=== PATIENT | female | born 1940 | race Caucasian/White ===

== ENCOUNTER 2025-08-11 19:30 | Inpatient (IN) | payer MEDICARE ==
[~2025-08-11] VITALS: Ht 154.9 cm; Wt 54.2 kg
[~2025-08-11 19:30] MED LIST: HYDR200T73 PO; LEVO88TA28 PO; METH1TAB69 PO; METH2.5T PO; VALS160T2 PO
--- NOTE | 2025-08-11 19:41 | ELECTROCARDIOGRAPH REPORT ---
[facility] Test Date: 2025-08-11 Test Time: 19:38:24 Pat Name: SALLY SELLERS Department: EMERGENCY ROOM Room: [place] [address] Gender: F Ancillary Specialist: PM : 1940 Requested By: RENEE ESCALONA Order Number: [id number] Reading MD: Dr. MERON Mike Measurements Intervals [place] Rate: 105 P: 71 [place]: 157 QRS: 48 QRSD: 86 T: 56 QT: 316 QTc: 418 Interpretive Statements Sinus tachycardia Probable left atrial enlargement Electronically Signed On 08-12-2025 17:34:[address] MERON Mike Please click the below link to view image of tracing.
[2025-08-11 20:02] LABS: MEAN PLATELET VOLUME 6.4 FL (7.4-10.4); RED CELL DISTRIBUTION WIDTH 15.2 % (11.5-14.5)
[2025-08-11 20:23] LABS: CREATININE 0.65 MG/DL (0.40-0.90); PRO BRAIN NATRIURETIC PEPTIDE 1261 PG/ML (0-450); TOTAL CARBON DIOXIDE 24.9 MMOL/L (24-32); eCRCL 47 ML/MIN; eGFR 86 ML/MIN
--- NOTE | 2025-08-11 20:32 | RADIOLOGY REPORT ---
EXAM: DI CHEST,SINGLE VIEW TECHNIQUE: Single frontal chest radiograph CLINICAL HISTORY: CP COMPARISON: None FINDINGS/IMPRESSION: Probable small right pleural effusion. Patchy opacities throughout the right lung, most pronounced within the right lower lung. Unremarkable cardiomediastinal silhouette. No pneumothorax. Age-indeterminate fracture of the right humeral head.
[2025-08-11] MEDS ORDERED: levoFLOXACIN-Levaquin 500mg/D5 100 ML IV ONE (20:45)
--- NOTE | 2025-08-11 20:50 | Physician Documentation ---
History of Present Illness ~ Chief Complaint: Weakness Stated Complaint: WEAKNESS Time Seen by MD: 20:28 OK to notify your PCP?: Yes Primary Medical Doctor: [facility] Mode of Arrival: EMS HPI Patient presents to the emergency room for evaluation of generalized weakness. Symptoms has been gradual over the past week and she has developed fever as well. Patient has weakness profound enough to where she is not able to walk. She also endorses some swelling in her lower extremities Medication Reconciliation Allergies: Coded Allergies: Tetracyclines (Verified Allergy, Intermediate, diarrhea, 08/11/25) amoxicillin trihydrate (Verified Allergy, Intermediate, diarrhea, 08/11/25) potassium clavulanate (Verified Allergy, Intermediate, diarrhea, 08/11/25) cefuroxime axetil (Verified Allergy, Unknown, 08/11/25) codeine (Verified Adverse Reaction, Mild, gi, 08/11/25) Scheduled Amitriptyline Hcl* (Elavil*), 1 TAB PO HS, (Reported) Folic Acid* (Folic Acid*), 1 TAB PO DAILY, (Reported) Hydroxychloroquine Sulfate* (Plaquenil*), 200 MG PO DAILY, (Reported) Levothyroxine Sodium* (Levoxyl*), 88 MCG PO DAILY, (Reported) Melatonin (Melatonin), 1 TAB PO HS, (Reported) Methenamine Hippurate (Methenamine Hippurate), 1 GM PO BID, (Reported) Methotrexate Sodium (Methotrexate), 10 MG PO Q7D, (Reported) Olmesartan Medoxomil* (Benicar*), 1 TAB PO DAILY, (Reported) Valsartan* (Diovan*), 320 MG PO DAILY, (Reported) Past Medical History Past Medical History: Hypertension, Cholelithiasis, Diverticulitis, UTI, Arthritis Past Surgical History: hysterectomy, other Alcohol Use: Other Lives with: Alone Lives In: Home Review of Systems ROS All review of systems negative except as per HPI Physical Exam Vital Signs: Temperature: 100.0, Source: Oral, Heart Rate: 110, Respiratory Rate: 18, BP: 174/81, Pulse Oximetry: 92, Weight: 54.200 Oxygen Flow Rate: 0 Physical Exam General: Patient is awake, alert, oriented x4 in no acute distress Head: Normocephalic and atraumatic. Eyes: Conjunctival normal. EOMI. PERRL. ENT: Mucous membranes moist. Neck: Supple, trachea is midline. Chest: Clear to auscultation bilaterally without rales, rhonchi, or wheezes. There is no accessory muscle use or retractions. Cardiac: Tachycardic and regular without murmurs, gallops, or rubs. Abd: Soft, nondistended, nontender, with normoactive bowel sounds. No guarding, rebound, or rigidity. Progress Results/Orders Results/Orders Orders - HECTOR PRICE MD Chest,Single View (08/11/25 20:10) Monitor (08/11/25 19:32) Saline Lock (08/11/25 19:32) Oxygen (08/11/25 19:32) Page Hospitalist (08/11/25 20:48) Fill Out Med Reconciliation (08/11/25 20:48) Completed Orders - HECTOR PRICE MD Chest,Single View (08/11/25 20:10) Cbc/Diff (08/11/25 19:32) BMP (08/11/25 19:32) PBNP (08/11/25 19:32) Electrocardiogram (08/11/25 19:32) Hs Troponin I W Calculations (08/11/25 19:32) Hs Troponin I W Calculations (08/11/25 21:32) Hs Troponin I W Calculations (08/11/25 22:32) Azithromycin/Ns 500mg/250ml (Zithromax/N (08/11/25 20:30) Sodium Chloride Tablet (Sodium Chloride (08/11/25 20:50) Hgb A1c (08/11/25 19:45) Medications Received in ER Medications (Trade) Dose Ordered Sig/Yaa Route PRN Reason Start Time Stop Time Status Last Admin Dose Admin Azithromycin 250 ml @ 250 mls/hr ONCE ONCE IV 08/11/25 20:30 08/11/25 21:29 DC 08/11/25 21:52 250 MLS/HR (sodium chloride tablet) 1 gm ONCE ONCE PO 08/11/25 20:50 08/11/25 20:51 DC 08/11/25 21:51 1 GM Vital Signs 08/11/25 08/11/25 19:34 20:31 Temp 100.0 Pulse 110 Resp 18 B/P (MAP) 174/81 Pulse Ox 92 O2 Flow Rate 0 Laboratory Tests Test 08/11/25 19:45 White Blood Count 13.4 H Red Blood Count 3.93 L Hemoglobin 13.2 Hematocrit 36.8 Mean Corpuscular Volume 93.6 Mean Corpuscular Hemoglobin 33.5 H Mean Corpuscular Hemoglobin Concent 35.8 Red Cell Distribution Width 15.2 H Platelet Count 205 Mean Platelet Volume 6.4 L Neutrophils (%) (Auto) 88.7 H Lymphocytes (%) (Auto) 4.3 L Monocytes (%) (Auto) 6.8 Eosinophils (%) (Auto) 0 Basophils (%) (Auto) 0.2 Neutrophils # (Auto) 11.9 H Lymphocytes # (Auto) 0.6 L Monocytes # (Auto) 0.9 Eosinophils # (Auto) 0.0 Basophils # (Auto) 0.0 CBC Comment Sodium Level 125 L Potassium Level 3.9 Chloride Level 92 L Carbon Dioxide Level 24.9 Anion Gap 8 Blood Urea Nitrogen 11 Creatinine 0.65 Estimated GFR/1.73 m2 86 BUN/Creatinine Ratio 16.9 Glucose Level 113 H Hemoglobin A1c 5.4 Calcium Level 8.1 L Troponin I High Sensitivity 247 *H Pro-B-Type Natriuretic Peptide 1261 H Albumin 2.9 L Chemistry Comments EKG/XRAY/CT/US/VASC/MRI EKG : Additional Comment EKG interpreted by myself shows time of 1940, rate 105, sinus tachycardia, normal axis, no ST changes Chest X-Ray : Additional Comments Exam: CHEST,SINGLE VIEW EXAM: DI CHEST,SINGLE VIEW TECHNIQUE: Single frontal chest radiograph CLINICAL HISTORY: CP COMPARISON: None FINDINGS/IMPRESSION: Probable small right pleural effusion. Patchy opacities throughout the right lung, most pronounced within the right lower lung. Unremarkable cardiomediastinal silhouette. No pneumothorax. Age-indeterminate fracture of the right humeral head. Electronically Signed by:LILO STONE MD Date & Time: 08/11/252028 Medical Decision Making Additional information obtaine: old records Findings Patient presents to the emergency room for evaluation of generalized weakness. Differentials include but are not limited to urinary tract infection, electrolyte disturbances, dehydration, acute kidney injury, pneumonia therefore emergent labs and imaging indicated. Chest x-ray shows likely pneumonia which was is supported by patient's fever. IV antibiotics initiated. Possible element of volume overload/heart failure. On chest x-ray fracture seen in patient's right humerus however this is chronic in nature and patient is able to freely move for right arm. Elevation of troponins which may be related to heart failure infectious process. No ST elevation seen on EKG Differential Dx:Considerations: Include: anemia, CVA, dehydration, dysrhythmia, electrolyte imbalance, encephalopathy, Guillain-Canisteo, hypoglycemia, hypot ension, hypovolemia, labyrinthitis, Meniere's disease, myasathenia gravis, myocardial infarction, pulmonary embolus, renal failure, respiratory failure, TIA, VBI, vertigo central, vertigo peripheral, vestibular neuronitis, other Departure Admitted to Inpatient Unit: yes, to hospitalist Impression: Primary Impression: Pneumonia Additional Impression: Elevated troponin Condition: Guarded Referrals: NO PRIMARY CARE PROVIDER (PCP) Signature Scribe Signature: No scribe Attestation: The note accurately reflects work and decisions made by me.Hector Price MD 08/11/25 21:26 HECTOR PRICE MD Aug 11, 2025 20:50
[2025-08-11] MEDS: acetaminophen 1,000mg/100ml IV 100 ML IV ONE (21:49)
[2025-08-11] MEDS: azithromycin/NS 500mg/250ml 250 ML IV ONE (21:52)
[2025-08-11] MEDS ORDERED: HYDROcodone/acetaminophen 10/325mg tab PO PRN (22:00)
[2025-08-11] MEDS: PERFLUTREN PROTEIN-A MICROSPHR (Optison) 0.22 MG/ML 3ML VIAL IV ONE (22:00)
[2025-08-11] MEDS ORDERED: potassium Cl 20 mEq SR tablet PO PRN (22:00)
[2025-08-11] MEDS ORDERED: magnesium sulf-water 4G/100mL 100 ML IV PRN (22:00)
[2025-08-11] MEDS ORDERED: HYDROcodone/acetaminophen 5mg/325mg tablet PO PRN (22:00)
[2025-08-11] MEDS ORDERED: mag hydrox/Alum hydrox/simeth 30ml oral suspension PO PRN (22:00)
[2025-08-11] MEDS ORDERED: magnesium Cl slow-release 64mg tablet PO PRN (22:00)
[2025-08-11] MEDS ORDERED: potassium Cl 40MEQ/1/2NS 520ml 520 ML IV PRN (22:00)
[2025-08-11] MEDS ORDERED: ondansetron/PF 4mg/2ml inj IV PRN (22:00)
[2025-08-11] MEDS ORDERED: magnesium sulf-water 2g/50mL 50 ML IV PRN (22:00)
[2025-08-11] MEDS ORDERED: albuterol 2.5 MG/3 ML nebule NEB PRN (22:15)
[2025-08-11] MEDS ORDERED: ipratropium/albuterol 3ml nebule NEB PRN (22:15)
[2025-08-11] MEDS ORDERED: FOLI0.4T6 PO (22:20)
[2025-08-11] MEDS ORDERED: MELA10TA37 PO (22:20)
[2025-08-11] MEDS ORDERED: OLME5TAB32 PO (22:20)
[2025-08-11] MEDS ORDERED: AMIT50TA15 PO (22:20)
[2025-08-11] MEDS: diltiazem 5mg/ml 5ml inj. IV ONE (22:59)
[2025-08-11 23:14] LABS: INFLUENZA TYPE A ANTIGEN RAPID NEGATIVE (Negative); INFLUENZA TYPE B ANTIGEN RAPID NEGATIVE (Negative)
--- NOTE | 2025-08-11 23:17 | HISTORY AND PHYSICAL-Residence ---
History & Physical Providers to CC Resident Creating Document: KRISTINA ZUNIGA RES ~ History of Present Illness Primary Medical Doctor: ricardo [facility] Reason for Admit\Complaint: weakness, New onset a fib rvr, PNA History of Present Illness 84-year-old female with history of hypothyroid on levothyroxine, migraine, rheumatoid arthritis, skin cancer SCC presents to the ED with chief complaints of bilateral lower extremity weakness and fatigue. States yesterday she was not able to get up and stand due to weakness. Associated fever, cold, cough, loss of appetite. No expectoration. States that she feels dehydrated and has not been able to drink enough water for the last couple of days. Normally she is independent and able to walk around by herself, but for the last two three days she has been needing to use a walker. Borrowed the walker from her neighbor. Denies significant chest pains, diaphoresis, expectoration, palpitations, or weight loss/weight gain. She has a chronic history of being lightheaded and left hand numbness. She has a history of migraine and undergoes Botox, last Botox was two weeks ago. Drinks a glass of wine every day. Does not smoke no recreational drugs. PCP [facility]. Has a history of rheumatoid arthritis and is seeing a skimmer here in [place] on methotrexate. Also sees Dr. Cobb for history of skin SCC. Was supposed to see Dr. Dee tomorrow for cardiac evaluation. Allergies: Coded Allergies: Tetracyclines (Verified Allergy, Intermediate, diarrhea, 08/11/25) amoxicillin trihydrate (Verified Allergy, Intermediate, diarrhea, 08/11/25) potassium clavulanate (Verified Allergy, Intermediate, diarrhea, 08/11/25) cefuroxime axetil (Verified Allergy, Unknown, 08/11/25) codeine (Verified Adverse Reaction, Mild, gi, 08/11/25) Home Medications Home Medications Active Reported Melatonin 10 Mg Tablet 1 Tab PO HS 30 Days Elavil* (Amitriptyline HCl) 50 Mg Tablet 1 Tab PO HS 30 Days Folic Acid* (Folic Acid) 0.4 Mg Tablet 1 Tab PO DAILY 30 Days Benicar* (Olmesartan) 5 Mg Tablet 1 Tab PO DAILY 30 Days Plaquenil* (Hydroxychloroquine Sulfate) 200 Mg Tablet 200 Mg PO DAILY Methotrexate (Methotrexate Sodium) 2.5 Mg Tablet 10 Mg PO Q7D Methenamine Hippurate 1 Gm Tablet 1 Gm PO BID Diovan* (Valsartan) 160 Mg Tablet 320 Mg PO DAILY Levoxyl* (Levothyroxine Sodium) 88 Mcg Tablet 88 Mcg PO DAILY Past Medical History Past Medical History Hypothyroid on levothyroxine Migraine Cystitis on amitriptyline Past Surgical History Surgical History Comment Partial thyroidectomy Skin cancer resection Hysterectomy 1989 Carpal tunnel surgery Past Social History Alcohol Use: Other Lives with: Alone Lives In: Home ROS ROS Reviewed in full. All negative except for pertinent positive HPI. Exam Vitals: Vital Signs Date Time Temp Pulse Resp B/P (MAP) Pulse Ox O2 Delivery O2 Flow Rate FiO2 08/11/25 22:59 165 157/81 08/11/25 22:05 99.7 16 96 0 General: General: Awake and Alert, no acute distress. HEENT: Conjunctiva pink, Sclera clear, Mucus Membranes dry. Neck: Supple without masses and tenderness. Resp: Unlabored. Equal breath sounds bilaterally. Heart: Irregularly irregular, variable S1 no murmurs heard. Abdomen: Soft and non tender no organomegaly. Normal bowel sounds x4 quadrant normoactive. No guarding or rigidity. Extremities: Arthritic changes noted in bilateral hands. Normal ROM, no swelling, nontender. No cyanosis,clubbing or edema. Right upper extremity chronic restriction in range of motion from right humeral head fracture (15 years ago). 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 Skin: Warm and Dry. Diagnostic Data Last Recorded Lab Results: 08/11/25194408/11/251944 Advance Care Planning Advanced Care plannin - 30 Minutes (I spent total of 15-30 minutes reviewing various resuscitative measures with the patient. Patient decided to be DNR.) Additional Plan 84-year-old female with history of hypothyroid on levothyroxine, migraine, rheumatoid arthritis, skin cancer SCC presents to the ED with chief complaints of bilateral lower extremity weakness and fatigue. New onset AFib RVR Camilo Vasc 3 Initially she was in sinus tach HR 111's, in the ED she went into AFib RVR with heart rate in 160s Was given Cardizem 10 x 1 by ED physician Started Cardizem drip at 5 mg/hour Continuous telemetry monitoring Follow up with the echo, based on EF DC Cardizem drip and transitioned to beta blockers/CCB Follow up with A1c, lipid panel, TSH Started Eliquis five p.o. b.i.d. Community-acquired pneumonia POA Generalized weakness Hypovolemic Hyponatremia Elevated WBCs 13.4 with neutrophilic shift Procalcitonin 3.9, follow up with lactic acid Sodium is 125, follow up with spot studies CXR: Small right-sided pleural effusion right lower lung opacity. Appears to be dehydrated, continue IV fluid resuscitation NS at 100 mL/hour IV antibiotics Levaquin 750 Q 48 H, breathing treatments p.r.n. Started methylprednisolone 40 IV daily Follow up with blood cultures, sputum cultures, CT chest, lactic acid, UA, U tox, flu and COVID testing Elevated BNP Elevated troponins, type 2 [place] She does have elevation in BNP 1 261, but she is not fluid overloaded Follow up with echo Elevated tropes (flat) could have been secondary to AFib RVR EKG initial: Sinus tach, repeat EKG couple hours later: AFib RVR heart rate in 160 Continue anticoagulation with Eliquis five b.i.d. Chronic fracture of the right humeral head (15 years ago), chronic restriction in range of motion of the right upper extremity. History of migraine, undergoing Botox treatment Hypothyroid on levothyroxine (partial thyroidectomy) Rheumatoid arthritis on methotrexate Awaiting med rec Code Status: DNR DVT prophylaxis: Eliquis Analgesia/sedation: None Line/tube: PIV GI prophylaxis: Protonix Nutrition: Heart healthy Prognosis: Guarded Disposition: Continue medical management. Kristina Zuniga MD. IM Resident PGY-3 Patient case discussed with resident, agree with the assessment and plan as above. Bobbi Diaz MD Critical Care Date of Service: Aug 11, 2025 Billing Provider: BOBBI DIAZ MD, ELIZABETH, RES Aug 11, 2025 23:17 BOBBI DIZA MD Aug 12, 2025 14:29
[2025-08-11 23:28] LABS: LEUKOCYTE ESTERASE ,URINE NEGATIVE (Neg); NITRITES, URINE POSITIVE (Neg); OCCULT BLOOD,URINE LARGE (Neg)
[2025-08-11 23:30] LABS: UA COLLECTION TYPE CLN CATCH MIDSTREAM
[2025-08-11] MEDS: levoFLOXACIN-Levaquin 750MG/D5 150 ML IV SCH (23:31)
[2025-08-11] MEDS: diltiazem-NS 100mg/100ml 100 ML IV SCH (23:34)
--- NOTE | 2025-08-11 23:38 | RADIOLOGY REPORT ---
EXAM: CT CT CHEST History: pna Comparison Study: DI CHEST,SINGLE VIEW on DOS: 08/11/25 TECHNIQUE: Multidetector CT of the chest was performed. Imaging was performed without IV contrast. Axial, coronal, and sagittal multiplanar reformats were obtained from the axial data set by the technologist. Radiation Dose : CTDI vol 10.7 mGy, DLP 384.5 mGy*cm. Findings: Limited evaluation of the solid organs in the absence of IV contrast. Lungs: Dense opacities are seen most pronounced within the right lower lobe. Scattered additional patchy opacities are seen throughout the right lung and left lower lobe. Emphysematous changes are present. Pleura: Small right pleural effusion. Heart/Great vessels: No cardiomegaly. Trace pericardial effusion. Mild atherosclerotic calcification about the aorta. Mild coronary artery calcification. Mediastinum: Unremarkable. Soft tissues/Bones: Unremarkable Upper abdomen: Unremarkable. Impression: 1. Dense opacities most pronounced within the right lower lobe suggestive of infectious / inflammatory process in the appropriate clinical setting. A posttreatment follow-up is suggested to ensure appropriate resolution. 2. Small right pleural effusion. 3. Emphysema.
[2025-08-11] MEDS: enoxaparin 40mg/0.4ml syringe SUBCUT ONE (23:43)
[2025-08-11] MEDS: normal saline 1000ml 1,000 ML IV SCH (23:45)
[2025-08-12] VITALS (16 sets, daily range): BP systolic 102–166; BP diastolic 48–79; PULSE 68–166; RESP 15–21; TEMP 97.4–98.1; O2SAT 91–96
[2025-08-12] LABS: SQUAMOUS EPITHELIAL CELL,UR FEW /LPF (FEW); WBC CLUMPS,URINE FEW /HPF (NEGATIVE)
[2025-08-12 00:01] LABS: OSMOLALITY 261.0 MOSM/K (280-300)
[2025-08-12] MEDS: diltiazem-NS 100mg/100ml 100 ML IV SCH ×2 (00:41→03:40)
[2025-08-12 00:52] LABS: OSMOLALITY UA 271 MOSM/K (50-1400)
[2025-08-12 00:58] LABS: URINE AMPHETAMINE SCREEN NEGATIVE (Neg); URINE BARBITUATE SCREEN NEGATIVE (Neg); URINE BENZODIAZEPINES SCREEN NEGATIVE (Neg); URINE CANNABINOID SCREEN NEGATIVE (Neg); URINE COCAINE SCREEN NEGATIVE (Neg); URINE METHADONE SCREEN NEGATIVE (Neg); URINE OPIATE SCREEN NEGATIVE (Neg); URINE PHENCYCLIDINE SCREEN NEGATIVE (Neg)
[2025-08-12 02:18] LABS: MEAN PLATELET VOLUME 6.4 FL (7.4-10.4); RED CELL DISTRIBUTION WIDTH 15.2 % (11.5-14.5)
[2025-08-12 02:27] LABS: INR 1.2 INR
[2025-08-12 02:31] LABS: CHOL/HDL RATIO 2.1 (0.00-4.99); CREATININE 0.67 MG/DL (0.40-0.90); LDL CHOLESTEROL 42 MG/DL (50-100); PHOSPHORUS 2.0 MG/DL (2.3-4.5); TOTAL CARBON DIOXIDE 22.1 MMOL/L (24-32); eCRCL 45 ML/MIN; eGFR 83 ML/MIN
--- NOTE | 2025-08-12 04:58 | ELECTROCARDIOGRAPH REPORT ---
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 MERON Mike Measurements Intervals [place] Rate: 155 P: 0 OR: 0 QRS: 59 QRSD: 87 T: 60 QT: 298 QTc: 479 Interpretive Statements Atrial fibrillation with rapid V-rate ST depression, probably rate related Electronically Signed On 08-12-2025 17:34:[address] MERON Mike Please click the below link to view image of tracing.
[2025-08-12] MEDS: pantoprazole 40mg Tablet.DR PO SCH (07:06)
[2025-08-12] MEDS: potassium Cl 20 mEq SR tablet PO PRN (07:07)
[2025-08-12] MEDS: K and/or MAG REPLACEMENT MC SCH (07:09)
[2025-08-12] MEDS ORDERED: enoxaparin 40mg/0.4ml syringe SUBCUT SCH (08:00)
--- NOTE | 2025-08-12 12:37 | CONSULTATION REPORT ---
History of Present Illness Providers to CC CC: AZEEM DEE MD ~ Reason for Admit\Admit Dx: Cardiology consultation Refering MD: [facility] History of Present Illness Patient presented secondary to weakness and fatigue. She states she had a cold- like symptom. She reported fever, cold, cough, loss of appetite. She states she was dehydrated. Denies shortness or breath. Was found to have atrial fibrillation with rapid ventricular response that spontaneously converted to sinus rhythm. Remains in sinus rhythm. Denies having frequent palpitations. No shortness a breath or dyspnea on exertion. Was asked, but otherwise denies review of systems. Allergies: Coded Allergies: Tetracyclines (Verified Allergy, Intermediate, diarrhea, 08/11/25) amoxicillin trihydrate (Verified Allergy, Intermediate, diarrhea, 08/11/25) potassium clavulanate (Verified Allergy, Intermediate, diarrhea, 08/11/25) cefuroxime axetil (Verified Allergy, Unknown, 08/11/25) codeine (Verified Adverse Reaction, Mild, gi, 08/11/25) Home Medications Home Medications Active Reported Melatonin 10 Mg Tablet 1 Tab PO HS 30 Days Elavil* (Amitriptyline HCl) 50 Mg Tablet 1 Tab PO HS 30 Days Folic Acid* (Folic Acid) 0.4 Mg Tablet 1 Tab PO DAILY 30 Days Benicar* (Olmesartan) 5 Mg Tablet 1 Tab PO DAILY 30 Days Methotrexate (Methotrexate Sodium) 2.5 Mg Tablet 10 Mg PO Q7D Levoxyl* (Levothyroxine Sodium) 88 Mcg Tablet 88 Mcg PO DAILY Past Medical History Medical History Comment Rheumatoid arthritis Interstitial cystitis Hypothyroidism Hypertension Past Surgical History Surgical History Comment Thyroid nodule removed Hysterectomy Carpal tunnel Past Family History Family History: FH: rheumatoid arthritis MOTHER, , Cause: Myocardial infarct Past Social History Social History Comment History of smoking. Has quit. Drinks one glass of wine per night. No recreational drug use. Physical Exam Last Vital Signs Recorded: RN Vital Signs have been reviewed: Yes, Temperature: 97.6, Source: Oral, Heart Rate: 88, Respiratory Rate: 19, BP: 144/66, Pulse Oximetry: 91, Weight: 54.200 Physical Exam General: Awake, alert, oriented. No apparent distress Neck: Supple. Normal range of motion. No JVD Respiratory: Lungs are clear to auscultation bilaterally. No respiratory distress. Chest: Normal shape and size. No accessory muscle use. Cardiovascular: Regular rate and rhythm. S1-S2. No murmur, gallop, rub. Gastrointestinal: Abdomen is soft. Nontender to palpation. Bowel sounds present. Extremities: No lower extremity edema, cyanosis or clubbing. Neurologic: Alert and oriented x4. Nonfocal Psychiatric: Normal mood and affect. Skin: Normal color. Warm and dry. Review of Systems ROS Review of systems negative except documented in HPI. Results Diagram Lab Result Diagram: 08/12/2520308/12/25203 Assessment/Plan Additional Plan Patient presented secondary to cough, cold, congestive type symptoms. Was found to have elevated troponins and new onset atrial fibrillation. Cardiology consultation was requested. Atrial fibrillation, paroxysmal Spontaneously converted to sinus rhythm --chads Vasc is three. Recommend oral anticoagulation on discharge NSTEMI Likely AL type 2 given no chest pain. Maybe secondary to infectious process as he is being treated for pneumonia -echocardiogram pending --heparin for 48 hours --LDL goal --aspirin 81 mg daily Community-acquired pneumonia --antibiotics per hospitalist Hyponatremia --receiving normal saline. --recommend monitoring Hypokalemia --recommend replacement per protocol Case discussed with Dr. Dee who is in agreement with this plan. Supervising MD Supervising Physician: KISHA Chavez NP Aug 12, 2025 12:37
[2025-08-12] MEDS ORDERED: heparin 10,000 units/1 ML INJ IV PRN (16:00)
[2025-08-12] MEDS ORDERED: HEPARIN DRIP INITAL BOLUS --- DO NOT GIVE/ORDER MC ONE (16:00)
[2025-08-12 16:36] LABS: APTT 37 SECONDS (22-32); INR 1.1 INR
[2025-08-12] MEDS: heparin 25,000 UNIT/250ml bag 250 ML IV PRN (16:44)
[2025-08-12] MEDS: HEPARIN DRIP INITAL BOLUS --- DO NOT GIVE/ORDER MC ONE (16:51)
[2025-08-12] MEDS: MESSAGE TO NURSING IV ONE ×2 (16:52→23:32)
--- NOTE | 2025-08-12 17:42 | CARDIOLOGY REPORT ---
APPROVED REPORT EXAM: Comprehensive 2D, Doppler, and color-flow Echocardiogram. Patient Location: 3027 B Blood Pressure: 149/60 mmHg Heart Rate: 85 bpm Rhythm: SINUS Indications SHORTNESS OF BREATH ELEVATED PROBNP (1261) HS TROPONIN 247, 274, 269, 210 ATRIAL FIBRILLATION w/RVR - NEW ONSET Internal Revenue Agent: Sean Dee MD Previous echo: none 2D Dimensions RVDd 2.9 cm LA Diam 4.7 cm IVSd 0.9 (0.7-1.1cm) LVDd 4.0 cm PWd 1.0 (0.7-1.1cm) IVSs 1.2 (0.8-1.2cm) LVDs 2.5 (2.5-4.0cm) PWs 1.2 (0.8-1.2cm) LVOT Diameter 1.91 (1.8-2.4cm) LVEF(%) 67.7 (>50%) IVC 15.20 mm FS (%) 37.2 % SV 47.9 ml CO 3.0 L/min M-Mode Dimensions Left Atrium(MM) 3.57 (2.5-4.0cm) Aortic Root 2.47 (2.2-3.7cm) PWd 0.95 (0.7-1.1cm) Aortic Cusp Exc 1.43 (1.5-2.0cm) IVSs 1.07 cm MV EPSS 0.3 (<0.5cm) LVDs 2.23 (2.0-3.8cm) FS (%) 38 % PWs 1.31 cm ESV(Teich) 16.8 ml LVEF(%) 69 (>50%) Biplane 2D LA Volumes LA ESV Index 36.31 mL/m2 Aortic Valve AoV Peak Allan. 169.2 cm/s AoV VTI 33.5 cm AO Peak GR. 11.4 mmHg AO Mean GR. 6 mmHg LVOT VTI 24.44 cm LVOT Peak Allan. 125.7 cm/s NOLVIA(VTI)/BSA 2.08 cm2/m2 NOLVIA (VTI) 2.08 cm2 AV DI 0.73 % Mitral Valve MV E Velocity 150.7 cm/s MV Peak Gr. 14 mmHg MV DECEL TIME 244 ms MV A Velocity 129.1 cm/s MV PHT 56 ms E/A Ratio 1.2 MVA (PHT) 3.93 cm2 MV VMax 184.3 cm/s TDI Medial E' P. V 16.66 cm/s E/Medial E' 9.0 Tricuspid Valve TR P. Velocity 374 cm/s RAP ESTIMATE 10 mmHg TR Peak Gr. 56 mmHg RVSP 66 mmHg Pulmonary Vein S1 Velocity 43.8 cm/s D2 Velocity 62.8 cm/s PVa Velocity 49.6 cm/s PVa Duration 104 msec LEFT VENTRICLE Normal LV size and wall thickness. Overall systolic function is normal. LVEF is 65-70%. RIGHT VENTRICLE RV is normal size and function. RVSP is estimated at 66 mmHg. ATRIA Left atrium is moderately dilated. Right atrium is mildly dilated. AORTIC VALVE Trileaflet AV appears mildly sclerotic without stenosis or insufficiency. MITRAL VALVE Mild MV annular calcification without stenosis. Anterior leaflet prolapse with moderate regurgitation. TRICUSPID VALVE TV appears structurally normal with moderate regurgitation. PULMONIC VALVE Normal PV without stenosis, physiologic insufficiency. GREAT VESSELS Aortic root is normal in size. Ascending aorta is normal in size. PERICARDIUM Normal pericardium. No effusion. Other Information Study Quality: Adequate Conclusion Normal LV size and wall thickness. Overall systolic function is normal. LVEF is 65-70%. RV is normal size and function. RVSP is estimated at 66 mmHg. Left atrium is moderately dilated. Right atrium is mildly dilated. Trileaflet AV appears mildly sclerotic without stenosis or insufficiency. Mild MV annular calcification without stenosis. Anterior leaflet prolapse with moderate regurgitation. TV appears structurally normal with moderate regurgitation. Normal pericardium. No effusion.
--- NOTE | 2025-08-12 18:29 | PROGRESS NOTE- Residence ---
Progress Note - Resident Providers to CC Resident Creating Document: MARIANNE TURNER RES ~ Antibiotic Timeout Antibiotic Ordered?: Yes Subjective Seen and examined patient at the bedside, telemetry shows heart rate of 70s to 80s in normal sinus rhythm. We discontinued diltiazem drip Consulted cardiology Dr. Dee started patient on heparin drip per protocol. Patient also mentioned having longstanding history of lightheadedness when she stands. Objective Vital Signs Date Time Temp Pulse Resp B/P (MAP) Pulse Ox O2 Delivery O2 Flow Rate FiO2 08/12/25 15:00 98.0 82 15 153/66 (95) 92 Room Air 08/12/25 08:00 0 21 Result Diagram: 08/13/25 0557 08/13/25 0557 Awake , alert, and oriented x4 HEENT: Atraumatic, normocephalic, EOMI, anicteric sclera ; pink conjunctiva Neck: Trachea midline. Supple, full range of motion, no JVD Cardiac: Regular rhythm, regular rate, grade 3/6 holosystolic murmur heard at left lower sternal border. Respiratory: Decreased breath sounds on right side, no tachypnea, no wheezing ,rub or rales, Chest wall is symmetric and without deformity. Gastrointestinal: Abdomen symmetric, non-distended, soft, non-tender, normal bowel sounds x4 quadrant, normoactive, no hepatosplenomegaly Neurological: Mental status exam: alert and consciousness, orientation, memory, speech - Cranial nerve test: Cranial nerves 2-12 intact - Motor system: Normal Nutrition, normal tone, Power 5/5, no involuntary movements - Sensory system: Intact - Reflex testing: Biceps, triceps and knee reflexes 2+ - Cerebellar: Normal Skin: Warm and dry Extremities : No Edema, peripheral pulses felt, No deformities Psychiatric:Appropriate mood and affect,No hallucinations or suicidal ideation Coagulation Studies Laboratory Tests Test 08/12/25 15:56 Prothrombin Time 11.3 SECONDS (9.0-12.0) INR International Normalized Ratio 1.1 INR Activated Partial Thromboplast Time 37 SECONDS (22-32) H Coagulation Comments Advance Care Planning Advanced Care plannin - 30 Minutes Plan Plan 84 years old female with a history of hypothyroidism, rheumatoid arthritis, skin cancer he is currently evaluated for NSTEMI and new onset AFib NSTEMI Elevated troponins, patient denies any chest pain-likely due to type 2 [place] but underlying can not rule out NSTEMI Troponins are trended up initially from 247-269 and later trended down to [address] Dee was consulted and he recommended starting of the heparin drip for 48 hours, aspirin 81 mg p.o. daily Continue monitoring the patient vitals New onset AFib RVR 2/2 underlying infection Camilo Vasc 3 TSH-normal, ESR-high 48, procalcitonin-high 3.90 TSH-1.54, free T3 1.31, U tox-negative, LDL-42, HGB A1c- 5.4 , lactic acid-2.1, urinalysis positive for bacteria, chest x-ray/CT shows right sided pneumonia,Small right pleural effusion,Emphysema Patient is currently maintaining normal sinus rhythm with heart rate of 70s to 80s, we discontinued diltiazem drip Consulted acute care physical therapist Dr. Dee, he recommended heparin drip per protocol for underlying NSTEMI, hence we held Eliquis- will continue Eliquis at the time of discharge Echocardiogram-LVEF is 65-70%. RVSP 66 mmHg. Continuous telemetry monitoring Generalized weakness likely 2/2 Community-acquired pneumonia POA Urinary tract infection Hypovolemic Hyponatremia-with elevated serum osmolarity and flu and COVID negative, lactic acid-normal, U tox normal, high normal glucose Elevated WBCs 13.2 with neutrophilic shift, ESR-48, procalcitonin high Sodium is 127, event urine osmolality 271, urine random sodium 64 CXR: Small right-sided pleural effusion right lower lung opacity. CT chest- Dense opacities most pronounced within the right lower lobe,. Small right pleural effusion,Emphysema. Urinalysis-positive for WBC, nitrite, occult blood, protein Continue IV fluid resuscitation NS at 100 mL/hour IV antibiotics Levaquin 750 Q 48 H, breathing treatments p.r.n.,Continue methylprednisolone 40 IV daily Preliminary blood culture blood cultures, sputum cultures negative Follow up with orthostatic vitals Elevated BNP pulmonary hypertension She does have elevation in BNP 1261, but she is not fluid overloaded Follow up with echo-RVSP:66 mmHg , LVEF is 65-70%. Outpatient follow up for pulmonary hypertension Chronic fracture of the right humeral head (15 years ago), chronic restriction in range of motion of the right upper extremity. History of migraine, undergoing Botox treatment-patient takes amitriptyline at home, continue home med Hypothyroid on levothyroxine (partial thyroidectomy) Hypertension-continue home med olmesartan Rheumatoid arthritis on methotrexate-continue home med Code Status: DNR DVT prophylaxis: Heparin Analgesia/sedation: None Line/tube: PIV GI prophylaxis: Protonix Nutrition: Heart healthy Prognosis: Guarded Disposition: Continue monitoring the patient PCU with 24 hours telemetry, acute care physical therapist Dr. Dee is aware of the patient he recommended continuation of heparin drip 48 hours Marianne Turner PGY1-Internal Medicine Resident Addendum pt looking dry, c/o chr dizziness, monitor orthostatics Date of Service: Aug 12, 2025 Billing Provider: TANK SULLIVAN MD Common Visit Codes: [id number] INP/OBS CARE(HIGH) MARIANNE TURNER, HANK Aug 12, 2025 18:29 TANK SULLIAVN MD Aug 13, 2025 07:13
[2025-08-12] MEDS: levoTHYROXINE 88mcg tablet PO SCH (20:24)
[2025-08-13] VITALS (13 sets, daily range): BP systolic 115–193; BP diastolic 51–88; PULSE 79–109; RESP 13–20; TEMP 97.2–98.1; O2SAT 95–98
[2025-08-13] MEDS: hydrALAZINE 20mg/ml inj. IV ONE (03:00)
[2025-08-13 06:22] LABS: MEAN PLATELET VOLUME 6.5 FL (7.4-10.4); RED CELL DISTRIBUTION WIDTH 15.4 % (11.5-14.5)
[2025-08-13 06:38] LABS: CREATININE 0.51 MG/DL (0.40-0.90); PHOSPHORUS 2.4 MG/DL (2.3-4.5); TOTAL CARBON DIOXIDE 22.3 MMOL/L (24-32); eCRCL 60 ML/MIN; eGFR > 90 ML/MIN
[2025-08-13] MEDS: aspirin 81mg, enteric-coated 1 TAB TABLET.DR PO SCH (07:16)
[2025-08-13] MEDS: MESSAGE TO NURSING IV ONE (08:35)
[2025-08-13] MEDS: hydrALAZINE 20mg/ml inj. IV PRN (09:16)
[2025-08-13] MEDS: enoxaparin 60mg/0.6ml syringe SUBCUT SCH (10:56)
--- NOTE | 2025-08-13 14:17 | PROGRESS NOTE- Residence ---
Progress Note - Resident Providers to CC Resident Creating Document: MARIANNE TURNER RES ~ Antibiotic Timeout Antibiotic Ordered?: Yes Subjective Patient was seen and examined at the bedside, telemetry shows normal sinus rhythm, patient has hypertension so we started on hydralazine p.r.n., and continue home med olmesartan, additionally patient endorses disturbance in her sleep. Patient did report mild lightheadedness when getting up from the bed Objective Vital Signs Date Time Temp Pulse Resp B/P (MAP) Pulse Ox O2 Delivery O2 Flow Rate FiO2 08/13/25 11:00 97.7 98 13 115/61 (79) 98 Room Air 08/13/25 08:20 0 21 Result Diagram: 08/13/25 0557 08/13/25 0557 Awake , alert, and oriented x4 HEENT: Atraumatic, normocephalic, EOMI, anicteric sclera ; pink conjunctiva Neck: Trachea midline. Supple, full range of motion, no JVD Cardiac: Regular rhythm, regular rate, grade 3/6 holosystolic murmur heard at left lower sternal border. Respiratory: Decreased breath sounds on right side, no tachypnea, no wheezing ,rub or rales, Chest wall is symmetric and without deformity. Gastrointestinal: Abdomen symmetric, non-distended, soft, non-tender, normal bowel sounds x4 quadrant, normoactive, no hepatosplenomegaly Neurological: Mental status exam: alert and consciousness, orientation, memory, speech - Cranial nerve test: Cranial nerves 2-12 intact - Motor system: Normal Nutrition, normal tone, Power 5/5, no involuntary movements - Sensory system: Intact - Reflex testing: Biceps, triceps and knee reflexes 2+ - Cerebellar: Normal Skin: Warm and dry Extremities : No Edema, peripheral pulses felt, No deformities Psychiatric:Appropriate mood and affect,No hallucinations or suicidal ideation Coagulation Studies Laboratory Tests Test 08/12/25 15:56 08/13/25 05:34 Prothrombin Time 11.3 SECONDS (9.0-12.0) INR International Normalized Ratio 1.1 INR Activated Partial Thromboplast Time 37 SECONDS (22-32) H APTT (Heparin Protocol) 48 SECONDS (45-60) Coagulation Comments Advance Care Planning Advanced Care plannin - 30 Minutes Plan Plan 84 years old female with a history of hypothyroidism, rheumatoid arthritis, skin cancer he is currently evaluated for new onset of AFib, pneumonia New onset AFib RVR 2/2 underlying infection Camilo Vasc 3 TSH-normal, ESR-high 48, procalcitonin-high 3.90 TSH-1.54, free T3 1.31, U tox-negative, LDL-42, HGB A1c- 5.4 , lactic acid-2.1, urinalysis positive for bacteria, chest x-ray/CT shows right sided pneumonia,Small right pleural effusion,Emphysema Patient is currently maintaining normal sinus rhythm with heart rate of 70s to 80s, we discontinued diltiazem drip Consulted fabricator special items Dr. Dee, he recommended heparin drip per protocol for underlying NSTEMI, hence we held Eliquis- will continue Eliquis at the time of discharge Echocardiogram-LVEF is 65-70%. RVSP 66 mmHg. Telemetry shows-normal sinus rhythm, continue monitoring patient in telemetry Troponinemia likely 2/2 type 2 [place] Elevated troponins, patient denies any chest pain-likely due to type 2 [place] Troponins are trended up initially from 247-269 and later trended down to 210 Dr. Dee fabricator special items on board, we held heparin drip and continued Eliquis 2.5 mg p.o. b.i.d. Continue monitoring the patient vitals Generalized weakness likely 2/2 Community-acquired pneumonia POA Asymptomatic bacteriuria Hypovolemic Hyponatremia-resolved flu and COVID negative, lactic acid-normal, U tox normal, high normal glucose Elevated WBCs 13.2 with neutrophilic shift, ESR-48, procalcitonin high Sodium is 135 CXR: Small right-sided pleural effusion right lower lung opacity. CT chest- Dense opacities most pronounced within the right lower lobe,. Small right pleural effusion,Emphysema. Urinalysis-positive for WBC, nitrite, occult blood, protein Continue IV fluid resuscitation NS at 100 mL/hour IV antibiotics Levaquin 750 Q 48 H, breathing treatments p.r.n.,Continue methylprednisolone 40 IV daily Preliminary blood culture blood cultures, sputum cultures negative Lightheadedness likely 2/2 orthostatic hypotension Patient reported having lightheadedness while standing up from sitting position, today her blood pressure is high Follow up which orthostatic vitals Hypertension Today patient blood pressure-is in 160s Started hydralazine p.r.n., continue home med olmesartan Elevated BNP pulmonary hypertension She does have elevation in BNP 1261, clinically patient looks dehydrated and not volume overload hence we started IV normal saline 70 cc/hour Follow up with echo-RVSP:66 mmHg , LVEF is 65-70%. Outpatient follow up for pulmonary hypertension Chronic fracture of the right humeral head (15 years ago), chronic restriction in range of motion of the right upper extremity. History of migraine, undergoing Botox treatment-patient takes amitriptyline at home, continue home med Hypothyroid on levothyroxine (partial thyroidectomy) Rheumatoid arthritis on methotrexate-continue home med Code Status: DNR DVT prophylaxis: Eliquis 2.5 mg p.o. b.i.d. Analgesia/sedation: None Line/tube: PIV GI prophylaxis: Protonix Nutrition: Heart healthy Prognosis: Guarded Disposition: Continue monitoring the patient PCU with 24 hours telemetry, PT evaluated and recommended post-acute care Marianne Turner PGY1-Internal Medicine Resident Date of Service: Aug 13, 2025 Billing Provider: TANK SULLIVAN MD Common Visit Codes: [id number] INP/OBS CARE(HIGH) MARIANNE TURNER, RES Aug 13, 2025 14:17 TANK SULLIVAN MD Aug 14, 2025 06:59
[2025-08-14] VITALS (9 sets, daily range): BP systolic 134–177; BP diastolic 53–86; PULSE 72–116; RESP 14–22; TEMP 97.1–97.9; O2SAT 95–98
[2025-08-14 07:23] LABS: MEAN PLATELET VOLUME 6.2 FL (7.4-10.4); RED CELL DISTRIBUTION WIDTH 15.4 % (11.5-14.5)
[2025-08-14 08:16] LABS: CREATININE 0.63 MG/DL (0.40-0.90); PHOSPHORUS 1.9 MG/DL (2.3-4.5); TOTAL CARBON DIOXIDE 22.6 MMOL/L (24-32); eCRCL 48 ML/MIN; eGFR 90 ML/MIN
[2025-08-14] MEDS ORDERED: SODIUM PHOSPHATE IN D5W 260 ML IV PRN (19:45)
[2025-08-14] MEDS ORDERED: sodium phos 15mmol/D5 255mL 255 ML IV PRN (19:45)
--- NOTE | 2025-08-14 20:30 | PROGRESS NOTE- Residence ---
Progress Note - Resident Providers to CC Resident Creating Document: MARIANNE TURNER RES ~ Antibiotic Timeout Antibiotic Ordered?: Yes Subjective Patient was seen and examined at the bedside, patient is currently maintaining normal sinus rhythm, we started Lasix 40 mg and losartan 100 mg for her blood pressure Objective Vital Signs Date Time Temp Pulse Resp B/P (MAP) Pulse Ox O2 Delivery O2 Flow Rate FiO2 08/14/25 18:30 89 08/14/25 15:00 97.6 16 152/67 (95) 97 Room Air 08/14/25 08:00 0.0 21 Result Diagram: 08/14/25 0703 08/14/25 0703 Awake , alert, and oriented x4 HEENT: Atraumatic, normocephalic, EOMI, anicteric sclera ; pink conjunctiva Neck: Trachea midline. Supple, full range of motion, no JVD Cardiac: Regular rhythm, regular rate, grade 3/6 holosystolic murmur heard at left lower sternal border. Respiratory: Decreased breath sounds on right side, no tachypnea, no wheezing ,rub or rales, Chest wall is symmetric and without deformity. Gastrointestinal: Abdomen symmetric, non-distended, soft, non-tender, normal bowel sounds x4 quadrant, normoactive, no hepatosplenomegaly Neurological: Mental status exam: alert and consciousness, orientation, memory, speech - Cranial nerve test: Cranial nerves 2-12 intact - Motor system: Normal Nutrition, normal tone, Power 5/5, no involuntary movements - Sensory system: Intact - Reflex testing: Biceps, triceps and knee reflexes 2+ - Cerebellar: Normal Skin: Warm and dry Extremities : No Edema, peripheral pulses felt, No deformities Psychiatric:Appropriate mood and affect,No hallucinations or suicidal ideation Coagulation Studies Laboratory Tests Test 08/12/25 15:56 08/13/25 05:34 Prothrombin Time 11.3 SECONDS (9.0-12.0) INR International Normalized Ratio 1.1 INR Activated Partial Thromboplast Time 37 SECONDS (22-32) H APTT (Heparin Protocol) 48 SECONDS (45-60) Coagulation Comments Advance Care Planning Advanced Care plannin - 30 Minutes Plan Plan 84 years old female with a history of hypothyroidism, rheumatoid arthritis, skin cancer he is currently evaluated for new onset of AFib, pneumonia New onset AFib RVR 2/2 underlying infection Camilo Vasc 3 TSH-normal, ESR-high 48, procalcitonin-high 3.90 TSH-1.54, free T3 1.31, U tox-negative, LDL-42, HGB A1c- 5.4 , lactic acid-2.1, urinalysis positive for bacteria, chest x-ray/CT shows right sided pneumonia,Small right pleural effusion,Emphysema Patient is currently maintaining normal sinus rhythm with heart rate of 70s to 80s, we discontinued diltiazem drip Consulted electric drill operator Dr. Dee, he recommended heparin drip per protocol for underlying NSTEMI, hence we held Eliquis- will continue Eliquis at the time of discharge Echocardiogram-LVEF is 65-70%. RVSP 66 mmHg. Telemetry shows-normal sinus rhythm, continue monitoring patient in telemetry Troponinemia likely 2/2 type 2 [place] Elevated troponins, patient denies any chest pain-likely due to type 2 [place] Troponins are trended up initially from 247-269 and later trended down to 210 Dr. Dee electric drill operator on board, we held heparin drip and continued Eliquis 2.5 mg p.o. b.i.d. Continue monitoring the patient vitals Generalized weakness likely 2/2 Community-acquired pneumonia POA Asymptomatic bacteriuria Hypovolemic Hyponatremia-resolved flu and COVID negative, lactic acid-normal, U tox normal, high normal glucose Elevated WBCs 13.2 with neutrophilic shift, ESR-48, procalcitonin high Sodium is 135 CXR: Small right-sided pleural effusion right lower lung opacity. CT chest- Dense opacities most pronounced within the right lower lobe,. Small right pleural effusion,Emphysema. Urinalysis-positive for WBC, nitrite, occult blood, protein Continue IV fluid resuscitation NS at 100 mL/hour IV antibiotics Levaquin 750 Q 48 H, breathing treatments p.r.n.,Continue methylprednisolone 40 IV daily Preliminary blood culture blood cultures, sputum cultures negative Lightheadedness likely 2/2 orthostatic hypotension Patient reported having lightheadedness while standing up from sitting position, today her blood pressure is high Follow up which orthostatic vitals Hypertension Today patient blood pressure-is in 160s Started hydralazine p.r.n., Started losartan 100 mg p.o. daily, Lasix 20 mg p.o. daily Elevated BNP pulmonary hypertension She does have elevation in BNP 1261, clinically patient looks dehydrated and not volume overload hence we started IV normal saline 70 cc/hour Follow up with echo-RVSP:66 mmHg , LVEF is 65-70%. Outpatient follow up for pulmonary hypertension Hypophosphatemia Started on phosphate Chronic fracture of the right humeral head (15 years ago), chronic restriction in range of motion of the right upper extremity. History of migraine, undergoing Botox treatment-patient takes amitriptyline at home, continue home med Hypothyroid on levothyroxine (partial thyroidectomy) Rheumatoid arthritis on methotrexate-continue home med Code Status: DNR DVT prophylaxis: Eliquis 2.5 mg p.o. b.i.d. Analgesia/sedation: None Line/tube: PIV GI prophylaxis: Protonix Nutrition: Heart healthy Prognosis: Guarded Disposition: Continue monitoring the patient PCU with 24 hours telemetry, PT evaluated and recommended post-acute care,Pt is agreeable to short term rehab and her first choice is TCU. They will have a bed for her tomorrow 08/15/2025. Continue to monito Marianne Turner PGY1-Internal Medicine Resident Date of Service: Aug 14, 2025 Billing Provider: TANK SULLIVAN MD Common Visit Codes: [id number] INP/OBS CARE(HIGH) MARIANNE TURNER, RES Aug 14, 2025 20:30 TANK SULLIVAN MD Aug 15, 2025 06:51
[2025-08-15 02:00] VITALS: BP 156/68; PULSE 81; RESP 13; TEMP 97.4; O2SAT 95
[2025-08-15 06:00] VITALS: BP 145/84; PULSE 78; RESP 18; TEMP 97.6; O2SAT 98
[2025-08-15 06:46] LABS: MEAN PLATELET VOLUME 6.3 FL (7.4-10.4); RED CELL DISTRIBUTION WIDTH 15.4 % (11.5-14.5)
[2025-08-15 07:06] LABS: CREATININE 0.63 MG/DL (0.40-0.90); PHOSPHORUS 2.8 MG/DL (2.3-4.5); TOTAL CARBON DIOXIDE 25.9 MMOL/L (24-32); eCRCL 48 ML/MIN; eGFR 90 ML/MIN
[2025-08-15 07:27] LABS: BANDS% (MANUAL) 1.0 % (0-10); LYMPHOCYTES % (MANUAL) 13.0 % (21-51); METAMYLEOCYTES% (MANUAL) 2.0 % (0-0); MONOCYTES % (MANUAL) 7.0 % (2-12); NEUTROPHILS % (MANUAL) 77.0 % (42-75); PLATELET ESTIMATE NORMAL
[2025-08-15 08:00] VITALS: RESP 16; O2SAT 97
[2025-08-15 11:00] VITALS: BP 158/76; PULSE 96; RESP 18; TEMP 97; O2SAT 97
[2025-08-15 14:19] VITALS: BP_SYST 159; PULSE 72
[2025-08-15] MEDS: metoprolol tartrate 12.5mg (1/2 tablet) PO SCH (14:19)
--- NOTE | 2025-08-15 22:09 | DISCHARGE SUMMARY-Residence ---
Discharge Summary Providers to CC Resident Creating Document: MARIANNE TURNER RES ~ Discharge Summary Admission Diagnosis: PNEUMONIA, HYPONATREMIA, WEAKNESS Hospital Course DATE OF ADMISSION: 08/15/2025 DATE OF DISCHARGE: 08/11/25 Discharge Diagnosis\Comment: Troponinemia likely secondary to AFib New onset AFib secondary to underlying infection Community-acquired pneumonia Operations\Procedures: None Consultants: Cardiology Dr. Dee Complications: None Condition on DC: Stable for transfer Discharge Summary: History of present illness 84-year-old female with history of hypothyroid on levothyroxine, migraine, rheumatoid arthritis, skin cancer SCC presents to the ED with chief complaints of bilateral lower extremity weakness and fatigue. States yesterday she was not able to get up and stand due to weakness. Associated fever, cold, cough, loss of appetite. No expectoration. States that she feels dehydrated and has not been able to drink enough water for the last couple of days. Normally she is independent and able to walk around by herself, but for the last two three days she has been needing to use a walker. Borrowed the walker from her neighbor. Denies significant chest pains, diaphoresis, expectoration, palpitations, or weight loss/weight gain. She has a chronic history of being lightheaded and left hand numbness. She has a history of migraine and undergoes Botox, last Botox was two weeks ago. Drinks a glass of wine every day. Does not smoke no recreational drugs. PCP [facility]. Has a history of rheumatoid arthritis and is seeing a vp of marketing here in [place] on methotrexate. Also sees Dr. Cobb for history of skin SCC. Was supposed to see Dr. Dee tomorrow for cardiac evaluation. Hospital course This 84 years old female with a history of hypothyroidism, rheumatoid arthritis, skin cancer who was admitted for generalized weakness and initial troponins were elevated and we consulted Dr. Dee and recommended starting the heparin drip additionally the patient also presents with new onset AFib with CHADS-VASc score of 3 and we started the patient on diltiazem drip initially and on the next day patient heart rate is controlled additionally patient also received treatment of antibiotic for community-acquired pneumonia and and her generalized weakness P initially thought orthostatic hypotension but it was negative along with that patient also developed hypertension which is not controlled with home medication so we increased the dose of losartan to 100 mg later blood pressure was controlled. On the day of discharge patient shows movement in her symptoms and PT evaluated the patient and recommended rehab and patient is discharged to rehab with Eliquis 2.5 mg p.o. b.i.d. Vital Signs Date Time Temp Pulse Resp B/P (MAP) Pulse Ox O2 Delivery O2 Flow Rate FiO2 08/15/25 14:19 72 08/15/25 11:00 97.0 18 158/76 (103) 97 Room Air 08/15/25 08:00 0.0 21 Laboratory Tests Test 08/14/25 07:03 08/14/25 20:51 08/15/25 06:03 White Blood Count 13.7 X10'3 11.6 X10'3 Red Blood Count 3.71 X10'6 3.80 X10'6 Hemoglobin 12.2 g/dl 12.3 g/dl Hematocrit 35.2 % 36.1 % Mean Corpuscular Volume 94.8 FL 95.0 FL Mean Corpuscular Hemoglobin 32.8 PG 32.4 PG Mean Corpuscular Hemoglobin Concent 34.6 g/dL 34.1 g/dL Red Cell Distribution Width 15.4 % 15.4 % Platelet Count 344 X10'3 402 X10'3 Mean Platelet Volume 6.2 FL 6.3 FL Neutrophils (%) (Auto) 86.0 % 77.7 % Lymphocytes (%) (Auto) 5.6 % 10.6 % Monocytes (%) (Auto) 8.3 % 11.5 % Eosinophils (%) (Auto) 0 % 0 % Basophils (%) (Auto) 0.1 % 0.2 % Neutrophils # (Auto) 11.8 X10'3 9.0 X10'3 Lymphocytes # (Auto) 0.8 X10'3 1.2 X10'3 Monocytes # (Auto) 1.1 X10'3 1.3 X10'3 Eosinophils # (Auto) 0.0 X10'3 0.0 X10'3 Basophils # (Auto) 0.0 X10'3 0.0 X10'3 CBC Comment Sodium Level 136 MMOL/L 137 MMOL/L Potassium Level 4.0 MMOL/L 4.3 MMOL/L Chloride Level 106 MMOL/L 104 MMOL/L Carbon Dioxide Level 22.6 MMOL/L 25.9 MMOL/L Anion Gap 7 7 Blood Urea Nitrogen 13 MG/DL 18 MG/DL Creatinine 0.63 MG/DL 0.63 MG/DL Estimated GFR/1.73 m2 90 ML/MIN 90 ML/MIN BUN/Creatinine Ratio 20.6 28.6 Glucose Level 106 MG/DL 83 MG/DL Calcium Level 7.9 MG/DL 8.0 MG/DL Phosphorus Level 1.9 MG/DL 2.4 MG/DL 2.8 MG/DL Magnesium Level 2.1 MG/DL 2.0 MG/DL Albumin 2.4 G/DL 2.4 G/DL Chemistry Comments Differential Total Cells Counted 100 Neutrophils % (Manual) 77.0 % Band Neutrophils % 1.0 % Lymphocytes % (Manual) 13.0 % Monocytes % (Manual) 7.0 % Metamyelocytes % 2.0 % Platelet Estimate Normal Red Blood Cell Morphology Perf Basophilic Stippling Anisocytosis 1+ Physical examination Awake , alert, and oriented x4 HEENT: Atraumatic, normocephalic, EOMI, anicteric sclera ; pink conjunctiva Neck: Trachea midline. Supple, full range of motion, no JVD Cardiac: Regular rhythm, regular rate, grade 3/6 holosystolic murmur heard at left lower sternal border. Respiratory: Decreased breath sounds on right side, no tachypnea, no wheezing ,rub or rales, Chest wall is symmetric and without deformity. Gastrointestinal: Abdomen symmetric, non-distended, soft, non-tender, normal bowel sounds x4 quadrant, normoactive, no hepatosplenomegaly Neurological: Mental status exam: alert and consciousness, orientation, memory, speech - Cranial nerve test: Cranial nerves 2-12 intact - Motor system: Normal Nutrition, normal tone, Power 5/5, no involuntary movements - Sensory system: Intact - Reflex testing: Biceps, triceps and knee reflexes 2+ - Cerebellar: Normal Skin: Warm and dry Extremities : No Edema, peripheral pulses felt, No deformities Psychiatric:Appropriate mood and affect,No hallucinations or suicidal ideation Imaging at hospitalization Chest [id number] small right pleural effusion. Patchy opacities throughout the right lung, most pronounced within the right lower lung. Unremarkable cardiomediastinal silhouette. No pneumothorax. Age-indeterminate fracture of the right humeral head. Chest CT-Dense opacities most pronounced within the right lower lobe suggestive of infectious / inflammatory process in the appropriate clinical setting. A posttreatment follow-up is suggested to ensure appropriate resolution. Small right pleural effusion.Emphysema. Echocardiogram-Normal LV size and wall thickness. Overall systolic function is normal. LVEF is 65-70%. RV is normal size and function. RVSP is estimated at 66 mmHg. Left atrium is moderately dilated. Right atrium is mildly dilated. Trileaflet AV appears mildly sclerotic without stenosis or insufficiency. Mild MV annular calcification without stenosis. Anterior leaflet prolapse with moderate regurgitation. TV appears structurally normal with moderate regurgitation. Normal pericardium. No effusion. Discharge instructions and medications added Follow up with PCP and Cardiology Continue Levaquin 500 mg p.o. daily for 5 days Continue Eliquis 2.5 mg p.o. b.i.d. Increase the dose of losartan to 100 mg p.o. daily and added metoprolol 12.5 mg p.o. daily *Problems/Diagnosis: (1) New onset a-fib (2) Pneumonia Status: Acute (3) Elevated troponin Status: Acute Total Time Spent on D/C: Up to 30 Minutes Date of Service: Aug 15, 2025 Billing Provider: TANK SULLIVAN MD Common Visit Codes: [id number] DISCH DAY >30min MARIANNE TURNER, RES Aug 15, 2025 22:07 TANK SULLIVAN MD Aug 16, 2025 08:48
== END 2025-08-15 15:43 | DRG 871 ==
LOC: ER 19:30 → ED HOLD 21:04 → EDBEDREQ 21:23 → PCU 3S 08-12
PROVIDERS: ADMIT Internal Medicine Pulmonary Disease; ATTEND Internal Medicine
DX: A41.9 Sepsis, unspecified organism (principal); I21.A1 Myocardial infarction type 2; J15.69 Pneumonia due to other Gram-negative bacteria; J15.9 Unspecified bacterial pneumonia; Z66 Do not resuscitate; I48.0 Paroxysmal atrial fibrillation; I10 Essential (primary) hypertension; M06.9 Rheumatoid arthritis, unspecified; E03.9 Hypothyroidism, unspecified; E87.1 Hypo-osmolality and hyponatremia; E87.6 Hypokalemia; G43.909 Migraine, unspecified, not intractable, without status migrainosus; E78.5 Hyperlipidemia, unspecified; Z88.1 Allergy status to other antibiotic agents; Z79.899 Other long term (current) drug therapy; Z90.710 Acquired absence of both cervix and uterus; Z87.891 Personal history of nicotine dependence; Z85.828 Personal history of other malignant neoplasm of skin
CPT/HCPCS: 36415; 71045; 71250; 80048; 80061; 80305; 81001; 83036; 83605; 83735; 83880; 83930; 83935; 84100; 84132; 84145; 84300; 84439; 84443; 84484; 85007; 85025; 85610; 85651; 85730; 87040; 87081; 87088; 87804; 87811; 93005; 93306; 94760; 97110; 97116; 97161; 97530; 99285; A6258; G0378; J0131; J0360; J0456; J1644; J1650; J1956; J2919; J3490; J7030